=== PATIENT | male | born 1950 | race Caucasian/White ===

== ENCOUNTER 2021-01-25 16:27 | Emergency (ER) | payer MEDICARE, OTHER ==
[~2021-01-25] VITALS: Ht 177.8 cm; Wt 99.8 kg
--- NOTE | 2021-01-25 16:50 | NUR ---
ARRIVAL PRESENTED TO ED AMBULATORY WITH C/O HIGH BLOOD PRESSURE = 191/99, TAKEN AT HOME TODAY AND C/O LIGHTHEADEDNESS. VS OBTAINED. DR. NUR NOTIFIED OF PATIENT ARRIVAL.
[2021-01-25 17:04] VITALS: BP 184/96
[2021-01-25] MEDS ORDERED: TOPROL XL PO STA (17:17)
--- NOTE | 2021-01-25 17:24 | PCM.EKG ---
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
--- NOTE | 2021-01-25 17:30 | ER.PDOC ---
General Chief Complaint: General Complaint Stated Complaint: ELEVATED BLOOD PRESSURE TRAVEL OUT OF US: No Time seen by MD: 17:24 Source: patient Exam Limitations: no limitations History of Present Illness Initial Comments Elevated blood pressure and lightheadedness today. Patient is visiting from [place] and did not bring along his metoprolol. He is requesting a temporary refill. He denies chest pain or shortness of breath. No nausea, vomiting or headache. He takes losartan and took it this morning. Severity: moderate Associated Symptoms: denies symptoms Past Medical History Medical History: arrhythmia, coronary artery disease, cardiac problems, GERD, high cholesterol, hypertension Surgical History: knee, other Family History Significant Family History: no pertinent family hx Social History Smoking: non-smoker Alcohol Use: heavy Drug Use: none Review of Systems Constitutional: no symptoms reported EENTM: no symptoms reported Respiratory: no symptoms reported Cardiovascular: see HPI Gastrointestinal: no symptoms reported All Other Systems: Reviewed and Negative Physical Exam General Appearance: No Apparent Distress, WD/WN Neck: Non-Tender, Full Range of Motion, Supple, Normal Inspection Respiratory: chest non-tender, lungs clear, normal breath sounds, no respirat ory distress, no accessory muscle use CVS: reg rate & rhythm, no murmur, no gallop, pulses nml, nml capillary refill Gastrointestinal: Normal Bowel Sounds, No Organomegaly, No Pulsatile Mass, Non Tender Back: Normal Inspection, No CVA Tenderness, No Vertebral Tenderness Extremities: Normal Range of Motion 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 as Tested, No Motor/Sensory Deficits, Alert, Normal Mood/Affect, Oriented x 3 Skin: Normal Color Results/Orders Results/Orders Orders - SONALI NUR MD Cbc With Auto Diff (01/25/21 17:17) Comprehensive Metabolic Panel (01/25/21 17:17) Xr Chest 1v (01/25/21 17:17) Ekg-Routine (01/25/21 17:17) Troponin I High Sensitivity (01/25/21 17:17) Metoprolol Succinate (Toprol Xl) (01/25/21 17:17) Metoprolol Succinate (Toprol Xl) (01/25/21 17:41) Vital Signs Date Time Temp Pulse Resp B/P (MAP) Pulse Ox O2 Delivery O2 Flow Rate FiO2 01/25/21 17:36 81 151/97 01/25/21 17:04 98.3 88 18 184/96 (125) 94 Room Air 01/25/21 17:04 98.3 88 18 94 01/25/21 17:04 98.3 88 18 Administered Medications Medications (Trade) Dose Ordered Sig/Allan Route PRN Reason Start Time Stop Time Status Last Admin Dose Admin Metoprolol Succinate (Toprol Xl) 50 mg STAT STAT PO 01/25/21 17:17 01/25/21 17:18 DC 01/25/21 17:36 50 MG Laboratory Tests Test 01/25/21 17:30 White Blood Count 6.4 10^3/uL (4.5-11.0) Red Blood Count 5.59 10^6/uL (4.50-5.90) Hemoglobin 16.4 g/dL (13.9-16.3) H Hematocrit 48.7 % (37.0-53.0) Mean Corpuscular Volume 87.1 fL (78-100) Mean Corpuscular Hemoglobin 29.3 pg (26-34) Mean Corpuscular Hemoglobin Concent 33.7 g/dL (33-36.5) Red Cell Distribution Width 12.9 % (11.5-14.5) Platelet Count 144 10^3/uL (150-400) L Mean Platelet Volume 8.9 fL (7.8-11.0) Neutrophils (%) (Auto) 68.8 % (41.0-85.0) Lymphocytes (%) (Auto) 19.9 % (24.0-44.0) L Monocytes (%) (Auto) 7.8 % (5.0-12.0) Neutrophils # (Auto) 4.4 10^3/uL (1.8-7.7) Lymphocytes # (Auto) 1.27 10^3/uL1 (1.0-4.8) Monocytes # (Auto) 0.5 10^3/uL (0.3-0.8) Absolute Immature Granulocyte (auto 0.01 10^3 u/L (0-2) Absolute Eosinophils (auto) 0.2 10^3/uL (0.0-0.2) Immature Granulocytes % 0.20 % (0.00-0.50) Eosinophils % 2.8 % (0.0-5.0) Basophils % 0.5 % (0.0-0.2) H Basophils # 0.0 10^3/uL (0.0-0.1) Sodium Level 139 mmol/L (132-145) Potassium Level 3.7 mmol/L (3.6-5.2) Chloride Level 103.0 mmol/L (96-109) Carbon Dioxide Level 26.9 mmol/L (20.0-32) Anion Gap 12.8 Blood Urea Nitrogen 12 mg/dL (7-18) Creatinine 0.92 mg/dL (0.59-1.40) Estimated GFR () 98.4 (>/=60) Est GFR (CKD-EPI)(Non-Afr Uzbek) 81.3 (>/=60) BUN/Creatinine Ratio 13.0 Glucose Level 110 mg/dL (70-110) Calcium Level 8.8 mg/dL (8.4-10.5) Total Bilirubin 0.8 mg/dL (0.2-1.0) Aspartate Amino Transferase (AST) 20 U/L (0-35) Alanine Aminotransferase (ALT) 20 U/L (12-78) Alkaline Phosphatase 84 U/L (50-136) Troponin I High Sensitivity 6 ng/L (0-75) Total Protein 7.3 g/dL (6.4-8.2) Albumin 4.0 g/dL (3.4-5.0) Globulin 3.3 Albumin/Globulin Ratio 1.212 Progress Progress Blood pressure here is 165/96. Cardiac enzymes, CBC and chemistry are unremark able. Patient received metoprolol extended release 50 mg by mouth. She is feeling better overall to go home. EKG/XRAY/CT/US EKG: NSR EKG Comments: HR 82, normal P axis XRAY: chest (No active disease) ER DEPART Departure Time of Disposition: 18:40 Disposition: 01 HOME / SELF CARE / HOMELESS Impression: Primary Impression: Uncontrolled hypertension Condition: Improved Referrals: PCP,UNKNOWN (PCP) PRIMARY CARE PROVIDER Additional Instructions: Metoprolol Continue rest of home medications Keep a blood pressure diary Follow-up with your PCP in 2 to 3 days Return to ED if worsening or concerns Duration or Time Spent with Pa: 30 min SONALI NUR MD Jan 25, 2021 17:30
[2021-01-25] MEDS ORDERED: TOPROL XL PO ONE (17:41)
[2021-01-25 17:45] LABS: BASOPHIL % 0.5 % (0.0-0.2); EOSINOPHIL # 0.2 10^3/uL (0.0-0.2); EOSINOPHIL % 2.8 % (0.0-5.0); LYMPHOCYTES # 1.27 10^3/uL1 (1.0-4.8); LYMPHOCYTES % 19.9 % (24.0-44.0); MEAN CORP HGB 29.3 pg (26-34); MONOCYTES # 0.5 10^3/uL (0.3-0.8); MONOCYTES % 7.8 % (5.0-12.0); NEUTROPHIL # 4.4 10^3/uL (1.8-7.7); NEUTROPHILS % 68.8 % (41.0-85.0); PLATELET COUNT 144 10^3/uL (150-400); RED CELL DISTRIBUTION WIDTH 12.9 % (11.5-14.5)
--- NOTE | 2021-01-25 17:45 | DIREP ---
PROCEDURE:CHEST 1 VIEW COMPARISON:None. INDICATIONS:hypertension FINDINGS: LUNGS/PLEURA:No significant pulmonary parenchymal abnormalities. No effusions. Shallow inspiration. VASCULATURE:Normal. Unremarkable pulmonary vasculature. CARDIAC:Normal. No cardiac silhouette abnormality or cardiomegaly. MEDIASTINUM:Normal. No visible mass or adenopathy. BONES:Normal. No fracture or visible bony lesion. OTHER:EKG leads overlie the chest. CONCLUSION:Shallow inspiration but no focal infiltrate. Dictated by: Viet Long M.D. on 01/25/2021 at 05:43 PM
[2021-01-25 17:59] LABS: CALCIUM 8.8 mg/dL (8.4-10.5); CARBON DIOXIDE 26.9 mmol/L (20.0-32)
--- NOTE | 2021-01-25 18:27 | NUR ---
REPORT REPORT GIVEN TO DRU WATSON RN.
[2021-01-25 18:55] VITALS: BP 146/96
== END 2021-01-25 18:55 | disposition home or self-care (01) ==
LOC: ER 16:27
DX: I10 Essential (primary) hypertension (principal); E78.00 Pure hypercholesterolemia, unspecified; I25.10 Atherosclerotic heart disease of native coronary artery without angina pectoris; K21.9 Gastro-esophageal reflux disease without esophagitis; Z76.0 Encounter for issue of repeat prescription; Z79.899 Other long term (current) drug therapy
CPT/HCPCS: 36415; 71045; 80053; 84484; 85025; 93005; 99285

== ENCOUNTER 2021-01-27 19:26 | Emergency (ER) | payer MEDICARE, OTHER ==
[~2021-01-27] VITALS: Ht 177.8 cm; Wt 99.8 kg
[2021-01-27 19:28] VITALS: BP 145/88
--- NOTE | 2021-01-27 19:52 | ER.PDOC ---
General Chief Complaint: Headache Stated Complaint: HEADACHE Time seen by MD: 19:43 Source: patient Exam Limitations: no limitations History of Present Illness Initial Comments This is a 70-year-old man who comes to the emergency department with a headache and high blood pressure. He had been seen twice before at [facility] and now is continuing to have blood pressure problems today. They placed him on clonidine 0.1 mg for breakthrough high blood pressure despite the fact the patient is taking losartan and metoprolol for blood pressure control. When I reached the room, his blood pressure is normal and he has no symptoms. Severity/Quality: mild Associated Symptoms: denies symptoms Prior symptoms/Treatment: Similar symptoms previous Allergies: Coded Allergies: No Known Allergies (Unverified , 01/27/21) Past Medical History Medical History: cardiac problems, hypertension Surgical History: knee, other Social History Alcohol Use: none Drug Use: none Review of Systems Constitutional: no symptoms reported Eyes: no symptoms reported Ears, Nose, Mouth, Throat: no symptoms reported Respiratory: no symptoms reported Cardiovascular: no symptoms reported Gastrointestinal: no symptoms reported Genitourinary: no symptoms reported Musculoskeletal: no symptoms reported Skin: no symptoms reported Psychiatric/Neurological: no symptoms reported All Other Systems: Reviewed and Negative Physical Exam General Appearance: No Apparent Distress, WD/WN Head/Eyes: eyes nml inspection, no facial swelling, no nystagmus, PERRL ENT: nml ENT inspection, pharynx nml Neck: nml inspection, Supple Cardiovascular: Normal Peripheral Pulses, Regular Rate, Rhythm, No Edema, No Gallop, No JVD, No Murmur Respiratory: chest non-tender, lungs clear, normal breath sounds, no respiratory distress, no accessory muscle use Gastrointestinal: Normal Bowel Sounds, No Organomegaly, No Pulsatile Mass, Non Tender, Soft Back: Normal Inspection, No CVA Tenderness, No Vertebral Tenderness Extremities: Normal Range of Motion, Non-Tender, Normal Inspection, No Pedal Edema, No Calf Tenderness, Normal Capillary Refill Psychiatric: Alert, Oriented x 3 Cranial Nerves: Normal Hearing, Normal Speech, PERRL Coordination/Gait: Normal Finger to Nose, Normal Gait Motor/Sensory: No Motor Deficit, No Sensory Deficit, No Pronator Drift, Negative Babinski's Sign Skin: Warm/Dry, Normal Color Lymphatic: No Adenopathy Results/Orders Results/Orders Vital Signs Date Time Temp Pulse Resp B/P (MAP) Pulse Ox O2 Delivery O2 Flow Rate FiO2 01/27/21 19:28 98.0 61 16 145/88 (107) 96 Room Air 01/27/21 19:28 98.0 61 16 96 01/27/21 19:28 98.0 61 16 01/25/21 17:36 81 ER DEPART Departure Time of Disposition: 19:59 Disposition: 01 HOME / SELF CARE / HOMELESS Impression: Primary Impression: Headache Additional Impression: Hypertension Condition: Stable Patient Instructions: Hypertension Referrals: PCP,UNKNOWN (PCP) PRIMARY CARE PROVIDER Additional Instructions: Hypertension take your blood pressure medications as prescribed, if you develop shortness of breath or chest pain or your blood pressure is uncontrolled by your regular medications you will need to return to the emergency department. Duration or Time Spent with Pa: Unknown Problem Qualifiers Primary Impression: Headache Headache type: other vascular headache Qualified Codes: G44.1 - Vascular headache, not elsewhere classified Additional Impression: Hypertension Hypertension type: primary hypertension Qualified Codes: I10 - Essential (primary) hypertension SARA FINNEGAN MD Jan 27, 2021 19:52
== END 2021-01-27 20:03 | disposition home or self-care (01) ==
LOC: ER 19:26 → EDBD 19:26 → ER 20:03
DX: G44.1 Vascular headache, not elsewhere classified (principal); I10 Essential (primary) hypertension
CPT/HCPCS: 36415; 80053; 85025; 93005; 99283; 99284

== ENCOUNTER 2021-01-27 20:39 | Emergency (ER) | payer MEDICARE, OTHER ==
[~2021-01-27] VITALS: Ht 177.8 cm; Wt 99.8 kg
[2021-01-27 21:02] VITALS: BP 157/99
--- NOTE | 2021-01-27 21:10 | ER.PDOC ---
General Chief Complaint: Headache Stated Complaint: HEADACHE,BODY TINGLING TRAVEL OUT OF US: No Time seen by MD: 21:05 Source: patient Exam Limitations: no limitations History of Present Illness Initial Comments This is a 70-year-old man who was here approximately an hour and a half ago for similar symptoms he was not symptomatic by the time I got into the room but while he was waiting for a ride to take him home he began feeling tingling and felt like his blood pressure was going up. His blood pressure here was 157/91 he has tingling in his body but no chest pain or shortness of breath. Severity: moderate Associated Symptoms: other (The patient states he feels tingly but no shortness of breath, no chest pain or cough, no diaphoresis, no fever or chills, no headache.) Allergies: Coded Allergies: No Known Allergies (Unverified , 01/27/21) Past Medical History Medical History: cardiac problems, hypertension Surgical History: knee, other Social History Drug Use: none Review of Systems Constitutional: no symptoms reported EENTM: denies no symptoms reported, denies see HPI, denies eye pain, denies blurred vision, denies tearing, denies double vision, denies ear pain, denies ear discharge, denies nose pain, denies nose congestion, denies throat pain, denies throat swelling, denies mouth pain, denies mouth swelling, denies other Respiratory: denies no symptoms reported, denies see HPI, denies cough, denies orthopnea, denies shortness of breath, denies stridor, denies wheezing, denies other Cardiovascular: denies no symptoms reported, denies see HPI, denies chest pain, denies edema, denies palpitations, denies syncope, denies other Gastrointestinal: denies no symptoms reported, denies see HPI, denies abdominal pain, denies constipation, denies diarrhea, denies nausea, denies vomiting, denies other Genitourinary: denies no symptoms reported, denies see HPI, denies discharge, denies dysuria, denies frequency, denies hematuria, denies pain, denies other Musculoskeletal: denies no symptoms reported, denies see HPI, denies back pain, denies gout, denies joint pain, denies joint swelling, denies muscle pain, denies muscle stiffness, denies neck pain, denies other Skin: denies no symptoms reported, denies see HPI, denies change in color, denies change in hair/nails, denies dryness, denies lesions, denies lumps, denies rash, denies other Psychiatric/Neurological: denies no symptoms reported, denies see HPI, denies anxiety, denies depressed, denies emotional problems, denies headache, denies numbness, denies paresthesia, denies pre-existing deficit, denies seizure; tingling; denies tremors, denies weakness, denies other Hematologic/Lymphatic: denies no symptoms reported, denies see HPI, denies anemia, denies blood clots, denies easy bleeding, denies easy bruising, denies swollen glands, denies other Immunological/Allergic: denies no symptoms reported, denies see HPI, denies food allergy, denies grass allergy, denies mold allergy, denies pollen allergy, denies HIV/AIDS, denies transplant All Other Systems: Reviewed and Negative Physical Exam General Appearance: No Apparent Distress EENT: nml ENT inspection Neck: Normal Inspection Respiratory: chest non-tender, lungs clear, normal breath sounds, no respiratory distress, no accessory muscle use CVS: reg rate & rhythm, no murmur, no gallop, pulses nml, nml capillary refill Gastrointestinal: Normal Bowel Sounds Back: Normal Inspection Extremities: Normal Inspection Neurologic/Psychiatric: No Motor/Sensory Deficits Skin: Normal Color Lymphatic: No Adenopathy Results/Orders Results/Orders Orders - SARA FINNEGAN MD Cbc With Auto Diff (01/27/21 21:03) Comprehensive Metabolic Panel (01/27/21 21:03) Ekg-Routine (01/27/21 21:03) Vital Signs Date Time Temp Pulse Resp B/P (MAP) Pulse Ox O2 Delivery O2 Flow Rate FiO2 01/27/21 21:02 97.9 63 16 157/99 (118) 99 Room Air 01/27/21 21:02 97.9 63 16 01/27/21 21:02 97.9 63 16 99 01/25/21 17:36 81 Laboratory Tests Test 01/27/21 21:50 White Blood Count 8.9 10^3/uL (4.5-11.0) Red Blood Count 5.50 10^6/uL (4.50-5.90) Hemoglobin 16.2 g/dL (13.9-16.3) Hematocrit 49.2 % (37.0-53.0) Mean Corpuscular Volume 89.5 fL (78-100) Mean Corpuscular Hemoglobin 29.5 pg (26-34) Mean Corpuscular Hemoglobin Concent 32.9 g/dL (33-36.5) L Red Cell Distribution Width 12.9 % (11.5-14.5) Platelet Count 144 10^3/uL (150-400) L Mean Platelet Volume 9.4 fL (7.8-11.0) Neutrophils (%) (Auto) 65.4 % (41.0-85.0) Lymphocytes (%) (Auto) 23.7 % (24.0-44.0) L Monocytes (%) (Auto) 7.2 % (5.0-12.0) Neutrophils # (Auto) 5.8 10^3/uL (1.8-7.7) Lymphocytes # (Auto) 2.10 10^3/uL1 (1.0-4.8) Monocytes # (Auto) 0.6 10^3/uL (0.3-0.8) Absolute Immature Granulocyte (auto 0.01 10^3 u/L (0-2) Absolute Eosinophils (auto) 0.3 10^3/uL (0.0-0.2) H Immature Granulocytes % 0.10 % (0.00-0.50) Eosinophils % 3.3 % (0.0-5.0) Basophils % 0.3 % (0.0-0.2) H Basophils # 0.0 10^3/uL (0.0-0.1) Sodium Level 139 mmol/L (132-145) Potassium Level 4.3 mmol/L (3.6-5.2) Chloride Level 103.0 mmol/L (96-109) Carbon Dioxide Level 27.8 mmol/L (20.0-32) Anion Gap 12.5 Blood Urea Nitrogen 17 mg/dL (7-18) Creatinine 1.03 mg/dL (0.59-1.40) Estimated GFR () 86.4 (>/=60) Est GFR (CKD-EPI)(Non-Afr Salvadorean) 71.4 (>/=60) BUN/Creatinine Ratio 16.0 Glucose Level 92 mg/dL (70-110) Calcium Level 9.2 mg/dL (8.4-10.5) Total Bilirubin 1.1 mg/dL (0.2-1.0) H Aspartate Amino Transferase (AST) 20 U/L (0-35) Alanine Aminotransferase (ALT) 18 U/L (12-78) Alkaline Phosphatase 84 U/L (50-136) Total Protein 7.1 g/dL (6.4-8.2) Albumin 3.9 g/dL (3.4-5.0) Globulin 3.2 Albumin/Globulin Ratio 1.218 EKG/XRAY/CT/US EKG: NSR ER DEPART Departure Time of Disposition: 22:17 Disposition: 01 HOME / SELF CARE / HOMELESS Impression: Primary Impression: Hypertension Condition: Stable Patient Instructions: Hypertension, [id number] Referrals: PCP,UNKNOWN (PCP) PRIMARY CARE PROVIDER Duration or Time Spent with Pa: Unknown Problem Qualifiers Primary Impression: Hypertension Hypertension type: primary hypertension Qualified Codes: I10 - Essential (primary) hypertension SARA FINNEGAN MD Jan 27, 2021 21:10
--- NOTE | 2021-01-27 21:42 | PCM.EKG ---
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
[2021-01-27 21:55] LABS: BASOPHIL % 0.3 % (0.0-0.2); EOSINOPHIL # 0.3 10^3/uL (0.0-0.2); EOSINOPHIL % 3.3 % (0.0-5.0); LYMPHOCYTES % 23.7 % (24.0-44.0); MEAN CORP HGB 29.5 pg (26-34); MONOCYTES # 0.6 10^3/uL (0.3-0.8); MONOCYTES % 7.2 % (5.0-12.0); NEUTROPHIL # 5.8 10^3/uL (1.8-7.7); NEUTROPHILS % 65.4 % (41.0-85.0); PLATELET COUNT 144 10^3/uL (150-400); RED CELL DISTRIBUTION WIDTH 12.9 % (11.5-14.5)
[2021-01-27 22:05] VITALS: BP 139/85
[2021-01-27 22:11] LABS: CALCIUM 9.2 mg/dL (8.4-10.5); CARBON DIOXIDE 27.8 mmol/L (20.0-32)
== END 2021-01-27 22:22 | disposition home or self-care (01) ==
LOC: ER 20:39
DX: I10 Essential (primary) hypertension (principal)
CPT/HCPCS: 36415; 80053; 85025; 93005; 99284